=== PATIENT | female | born 1985 | race Caucasian/White ===

== ENCOUNTER 2017-04-26 21:02 | Emergency (ER) | payer OTHER ==
[2017-04-26] MEDS ORDERED: 0.9 % SODIUM CHLORIDE 1000ML 1,000 ML IV SCH (21:30)
--- NOTE | 2017-04-26 21:31 | Emergency Department Record ---
History of Present Illness - General Chief Complaint: Rapid heartbeat Stated Complaint: ELEVATED HEART RATE ALL DAY Time Seen by Provider: 04/26/17 21:06 Source: Patient Mode of Arrival: Ambulatory Limitations: No limitations - History of Present Illness Initial Comments: 32 yo female presents to ED for evaluation of fluctuating heart rate throughout the day. Patient reports a history of similar symptoms but has never been seen for evaluation of these symptoms. Patient denies fevers, chills, cough symptoms , recent illness, chest pain, or difficulty in breathing symptoms. Patient also denies calf pain, swelling, or use of OCPs (has IUD in place). Patient denies health problems at her baseline, denies any medications or recent cessation of any medications. MD Complaint: "Heart racing" Onset/Timin -: Days(s) Context: Occurred during rest Associated Symptoms: Denies other symptoms - Related Data Allergies Allergy/AdvReac Type Severity Reaction Status Date / Time hydrocodone bitartrate Allergy Mild VOMITING Unverified 04/26/17 21:26 [From Vicodin] Review of Systems Constitutional: Denies: Chills, Fever, Malaise, Night sweats Eyes: Denies: Eye discharge, Eye pain ENT: Denies: Congestion, Ear pain, Epistaxis Respiratory: Denies: Cough, Dyspnea Cardiovascular: Reports: Palpitations. Denies: Chest pain, Dyspnea on exertion Endocrine: Denies: Fatigue, Heat or cold intolerance Gastrointestinal: Denies: Abdominal pain, Nausea, Vomiting Genitourinary: Denies: Incontinence, Retention Musculoskeletal: Denies: Arthralgia, Back pain, Gout, Joint swelling Skin: Denies: Bruising, Change in color Neurological: Denies: Abnormal gait, Confusion, Headache, Seizure Psychiatric: Denies: Anxiety Hematological/Lymphatic: Denies: Anemia, Blood Clots Physical Exam - General General Appearance: Alert, Oriented x3, Cooperative, Mild distress, Anxious ( mildly anxious on examination, pulse ranges from 92-112 on examination) - Head Head exam: Atraumatic, Normocephalic, Normal inspection Head exam detail: negative: Abrasion, Contusion, Munoz's sign, General tenderness, Hematoma, Laceration - Eye Eye exam: Normal appearance. negative: Conjunctival injection, Periorbital swelling, Periorbital tenderness, Scleral icterus - ENT Ear exam: negative: Auricular hematoma, Auricular trauma Nasal Exam: negative: Active bleeding, Discharge, Dried blood, Foreign body Mouth exam: negative: Drooling, Laceration, Muffled voice, Tongue elevation - Neck Neck exam: Normal inspection. negative: Meningismus, Tenderness - Respiratory Respiratory exam: Normal lung sounds bilaterally. negative: Rales, Respiratory distress, Rhonchi, Stridor - Cardiovascular Cardiovascular Exam: Regular rate, Normal rhythm, Normal heart sounds - GI/Abdominal GI/Abdominal exam: Soft. negative: Rebound, Rigid, Tenderness - Rectal Rectal exam: Deferred - exam: Deferred - Extremities Extremities exam: Normal inspection. negative: Calf tenderness, Pedal edema, Tenderness - Back Back exam: Denies: CVA tenderness (R), CVA tenderness (L) - Neurological Neurological exam: Alert, Normal gait, Oriented X3 - Psychiatric Psychiatric exam: Normal affect, Normal mood - Skin Skin exam: Normal color. negative: Abrasion Type of lesion: negative: abrasion Course Vital Signs 04/26/17 21:10 Temperature 98.1 F Pulse Rate [ 115 H Pulse Ox Probe] Respiratory 20 Rate Blood Pressure 120/85 [Left Arm] Pulse Ox 98 - Reevaluation(s) Reevaluation #1: 04/26/17 21:32 EKG: Sinus tachycardia 113 Normal axis, normal intervals Nonspecific St-T wave changes III, AVF. Reevaluation #2: 04/26/17 22:15 Laboratory studies reviewed, D-Dimer and TSH are negative for an acute etiology for the patient's symptoms. Labs are grossly unremarkable for an acute process. Pulse down to 76 on re-examination. Medical Decision Making - Lab Data Result diagrams: 04/26/17 21:38 04/26/17 21:38 Disposition Disposition: Discharge Clinical Impression: Sinus tachycardia Disposition: Home, Self-Care Condition: (2) Stable Instructions: Heart Palpitations (ED) Additional Instructions: Return to ED if your symptoms worsen or if you have any concerns. Follow-up with your family doctor in 3-5 days as directed. Forms: Patient Portal Access Time of Disposition: 22:17 Quality - Quality Measures Quality Measures: N/A - Blood Pressure Screening Does Patient Have Any of the Following: No Blood Pressure Classification: Pre-Hypertensive BP Reading Systolic Measurement: 120 Diastolic Measurement: 85 Screening for High Blood Pressure: < Pre-Hypertensive BP, F/U Documented > [ [id number]] Pre-Hypertensive Follow-up Interventions: Referral to alternative/primary care provider.
[2017-04-26 21:45] LABS: BASO % 0.1 % (0-6); EOS % 1.3 % (0-6); GRAN % 57.3 % (47-80); HEMATOCRIT 40.4 % (35.0-47.0); HEMOGLOBIN 13.8 gm/dl (11.6-16.0); LYMPH % 29.6 % (16-45); MEAN CELL VOLUME 93.3 fl (81-97); MEAN CORPUSCULAR HEMOGLOBIN 31.9 pg (27-33); MEAN CORPUSCULAR HGB CONC 34.2 g/dl (32-36); MEAN PLATELET VOLUME 8.7 fl (7.4-10.4); MONO % 11.7 % (0-9); PLATELET COUNT 264 K/uL (130-400); RED BLOOD COUNT 4.33 M/uL (3.80-5.40); RED CELL DISTRIBUTION WIDTH 12.5 % (11.5-14.5); WHITE BLOOD COUNT W/O DIFF 8.4 K/uL (4.2-12.2)
[2017-04-26 21:53] LABS: BLOOD UREA NITROGEN 8 mg/dL (6-20); CREATININE 0.6 mg/dL (0.5-0.9); EST GLOMERULAR FILTRATION RATE > 60 mL/min
[2017-04-26 21:54] LABS: TOTAL PROTEIN 6.9 g/dL (6.6-8.7)
[2017-04-26 21:56] LABS: GLUCOSE,RANDOM 113 mg/dL (74-109)
[2017-04-26 21:58] LABS: ALB/GLOB RATIO 2.3 (1.1-1.8); ALBUMIN 4.8 g/dL (4.0-5.0); ALT/SGPT 11 U/L (<33); AST/SGOT 16 U/L (10.0-35.0)
[2017-04-26 21:59] LABS: ALKALINE PHOSPHATASE 58 U/L (35-104)
[2017-04-26 22:09] LABS: THYROID STIMULATING HORMONE 5.17 uIU/mL (0.270-4.20)
== END 2017-04-26 22:30 | disposition home or self-care (01) ==
LOC: ER 21:02
DX: R00.0 Tachycardia, unspecified (principal)
CPT/HCPCS: 80053; 84443; 85025; 85379; 93005; 93010; 99284; J7030